=== PATIENT | male | born 1955 | race Caucasian/White ===

== ENCOUNTER 2022-08-10 05:29 | Inpatient (IN) | payer MEDICARE, OTHER ==
[~2022-08-10] VITALS: Ht 185.4 cm; Wt 102.1 kg
[2022-08-10 06:29] LABS: HEMOGLOBIN 13.2 gm/dl (14.0-17.5); RED BLOOD COUNT 4.71 M/UL (4.20-5.50); WHITE BLOOD COUNT 9.3 K/UL (4.5-11.0)
[2022-08-10 07:03] LABS: BUN/CREATININE RATIO 13 (0-10)
[2022-08-10] MEDS ORDERED: FAMOTIDINE20 MG PO (11:53)
[2022-08-10] MEDS ORDERED: FUROSEMIDE20 MG PO (11:54)
[2022-08-10] MEDS ORDERED: ZETIA10 MG PO (11:54)
[2022-08-10] MEDS ORDERED: CITALOPRAM HBR10 MG PO (11:54)
[2022-08-10] MEDS ORDERED: ALLOPURINOL300 MG PO (11:54)
[2022-08-10] MEDS ORDERED: ICOSAPENT ETHYL1 GM PO (11:55)
[2022-08-10] MEDS ORDERED: ISOSORBIDE DINI30 MG PO (11:55)
[2022-08-10] MEDS ORDERED: METFORMIN HCL500 MG PO (12:02)
[2022-08-10] MEDS ORDERED: CRESTOR40 MG PO (12:03)
[2022-08-10] MEDS ORDERED: METOPROLOL TART50 MG PO (12:03)
[2022-08-10] MEDS ORDERED: SOLIQUA 100 UNIT3 ML SQ (12:04)
[2022-08-10] MEDS ORDERED: ASPIRIN EC81 MG PO (12:05)
[2022-08-10] MEDS ORDERED: VITAMIN D31250 MCG PO (12:05)
--- NOTE | 2022-08-10 19:46 | NUR ---
PATIENT UNABLE TO VOID, BLADDER DISTENDED,650+ UPON BLADDER SCAN. MD NOTIFIED ORDERS OBTAINED TO PLACE A [facility] CATH.
[2022-08-11 03:12] LABS: RED BLOOD COUNT 4.26 M/UL (4.20-5.50); WHITE BLOOD COUNT 7.4 K/UL (4.5-11.0)
[2022-08-11 03:43] LABS: BUN/CREATININE RATIO 22 (0-10)
--- NOTE | 2022-08-12 04:27 | NUR ---
@ APPROX [phone] PATIENT STATED "GET ME A GUN I WANT TO KILL MYSELF, IM NOT GOING TO LAY HERE AND SUFFER". I ASKED THE PATIENT IF HE WANTED TO HURT HIMSELF AND HE STATED "JUST PLEASE KILL ME GIVE ME ENOUGH MEDICINE TO OVERDOSE AND KILL ME". I CONTACTED POUNCING LATHE OPERATOR AND MD, ORDERS WERE PUT IN FOR SI, SITTER AND DC TELE / PULSE OX. SECURITY IS SITTING WITH PATIENT AND ALL ITEMS FROM SI CHECK LIST WERE REMOVED FROM PATIENTS ROOM. PATIENT REFUSED TO WERE PAPER SCRUBS SO HE IS IN BED NAKED COVERED WITH A FLAT SHEET.
[2022-08-12 05:41] LABS: RED BLOOD COUNT 4.98 M/UL (4.20-5.50); WHITE BLOOD COUNT 9.3 K/UL (4.5-11.0)
[2022-08-12 06:44] LABS: BUN/CREATININE RATIO 27 (0-10)
--- NOTE | 2022-08-12 18:23 | NUR ---
YEAST MAKER CAME TO GET PATIENT TO DO ORDERED MRI. PATIENT REFUSED TO GO TO HAVE MRI DONE. PATIENT STATED IT WOULD BE TO PAINFUL. TECH SAID HE WOULD COME BACK IN THE MORNING AND SEE IF PATIENT CHANGED HIS MIND.
[2022-08-13 03:05] LABS: HEMOGLOBIN 12.7 gm/dl (14.0-17.5); RED BLOOD COUNT 4.57 M/UL (4.20-5.50); WHITE BLOOD COUNT 7.3 K/UL (4.5-11.0)
[2022-08-13 03:36] LABS: BUN/CREATININE RATIO 31 (0-10)
--- NOTE | 2022-08-13 22:06 | NUR ---
PUT WSM UNDER PT AND IT HAD A HOLE IN IT. PT REFUSED TO LET ME PUT ANOTHER ONE ON HIM.
[2022-08-14 07:08] LABS: HEMOGLOBIN 12.3 gm/dl (14.0-17.5); RED BLOOD COUNT 4.51 M/UL (4.20-5.50)
[2022-08-14 07:43] LABS: BUN/CREATININE RATIO 24 (0-10)
[2022-08-16] MEDS ORDERED: PERCOCET 5/325 T1 EA PO (08:24)
--- NOTE | 2022-08-16 11:04 | NUR ---
REPORT CALLED TO [facility], SPOKE WITH SHIRA. E[facility] CATHETER LEFT IN PLACE AND PER SHIRA REQUEST LEAVE IV IN PLACE. AWAITING TRANSPORT.
--- NOTE | 2022-08-16 12:05 | NUR ---
REPORT CALLED TO JAMES AT [facility] [phone], PATIENT DRESSING CHANGED ON LEFT HIP, AQUACELL PLACED. AWAITING TRANSPORT.
--- NOTE | 2022-08-17 00:26 | NUR ---
PATIENT DISCHARGED WITH SL AND F/C IN PLACE PER AM RN. EMS MADE AWARE.
== END 2022-08-17 00:10 | disposition short-term general hospital (02) | DRG 543 ==
LOC: ER1 05:29 → M/S 09:35 → CDU 09:35 → M/S 10:41
PROVIDERS: Family Medicine; Internal Medicine; Physician Assistant; ADMIT Internal Medicine
DX: M84.58XA Pathological fracture in neoplastic disease, other specified site, initial encounter for fracture (principal); C77.9 Secondary and unspecified malignant neoplasm of lymph node, unspecified; C79.51 Secondary malignant neoplasm of bone; Z51.5 Encounter for palliative care; Z66 Do not resuscitate; Z20.822 Contact with and (suspected) exposure to COVID-19; C78.00 Secondary malignant neoplasm of unspecified lung; J96.11 Chronic respiratory failure with hypoxia; R45.851 Suicidal ideations; L89.150 Pressure ulcer of sacral region, unstageable; M89.9 Disorder of bone, unspecified; F17.210 Nicotine dependence, cigarettes, uncomplicated; R91.8 Other nonspecific abnormal finding of lung field; E11.9 Type 2 diabetes mellitus without complications; K59.00 Constipation, unspecified; E78.5 Hyperlipidemia, unspecified; I10 Essential (primary) hypertension; Z85.46 Personal history of malignant neoplasm of prostate; Z99.3 Dependence on wheelchair; Z91.81 History of falling; Z99.81 Dependence on supplemental oxygen; Z90.49 Acquired absence of other specified parts of digestive tract; Z80.9 Family history of malignant neoplasm, unspecified; Z79.4 Long term (current) use of insulin
CPT/HCPCS: 36415; 71045; 71260; 72131; 80048; 80053; 81001; 82009; 82550; 82553; 82962; 83036; 83540; 83550; 83605; 83690; 83735; 83880; 84100; 84484; 85025; 85027; 86140; 87040; 87070; 87077; 87186; 87205; 92526; 92610; 93005; 99285; J1650; J2270; J2405; Q9967; U0002